=== PATIENT | male | born 1945 | race Caucasian/White ===

== ENCOUNTER 2017-01-31 15:44 | Observation (INO) | payer MEDICARE, OTHER ==
[~2017-01-31] VITALS: Ht 180.3 cm; Wt 90.4 kg
[~2017-01-31 15:44] MED LIST: COUMADIN 6MG6 MG/TAB PO; CYCLOBENZAPRINE5 MG PO; DIAZEPAM10 MG PO; MELATONIN1 MG PO; NO HOME MEDICATIONS; PREDNISONE1 MG
[2017-01-31 16:25] LABS: BASO # 0.1 (0.0-0.2); BASO % 0.5 % (0.0-2.0); EOS % 0.1 % (0-4.0); GRAN # 10.8 (1.4-6.5); GRAN % 85.3 % (42.2-75.2); HEMATOCRIT 44.7 % (42.0-52.0); LYMPH # 1.2 (1.2-3.4); LYMPH % 9.2 % (20.0-51.0); MEAN CELL VOLUME 98 fl (80.0-100.0); MEAN CORPUSCULAR HEMOGLOBIN 33 pg (27.0-31.0); MEAN CORPUSCULAR HGB CONC 34 g/dl (33.0-37.0); MEAN PLATELET VOLUME 9.4 fl (7.4-10.4); MONO # 0.6 (0.1-0.6); MONO % 4.5 % (1.7-9.3); PLATELET COUNT 261 K/mm3 (130-400); RED BLOOD COUNT 4.55 M/mm3 (4.20-5.60); REDCELL DISTRIBUTION WIDTH-CV 12.7 % (11.5-14.5); WHITE BLOOD COUNT 12.6 K/mm3 (4.8-10.8)
[2017-01-31 17:07] LABS: ADJUSTED CALCIUM 8.9 mg/dL (8.4-10.2); ALANINE AMINOTRANSFERASE 33 U/L (21-72); ALBUMIN 4.3 gm/dL (3.5-5.0); ALKALINE PHOSPHATASE 85 U/L (50-136); ANION GAP 12 mmol/L (7-16); BILIRUBIN,TOTAL 0.8 mg/dL (0.0-1.0); BLOOD UREA NITROGEN 17 mg/dL (9-20); CALCIUM 9.1 mg/dL (8.4-10.2); CARBON DIOXIDE 21 mmol/L (22-30); CHLORIDE 108 mmol/L (98-107); CREATININE, serum 1.09 mg/dL (0.66-1.25); GLUCOSE 108 mg/dL (74-106); LIPASE 56 U/L (23-300); POTASSIUM 4.3 mmol/L (3.4-5.0); SODIUM 140 mmol/L (137-145); TOTAL PROTEIN 7.6 gm/dL (6.4-8.2)
[2017-01-31 17:08] LABS: C-REACTIVE PROTEIN < 0.5 mg/dL (0.0-0.9)
[2017-01-31 18:38] LABS: PH 6 (5-8); SQUAMOUS EPITHELIAL 0-2 /hpf; URINE APPEARANCE Clear; URINE BACTERIA None Seen /hpf; URINE BILIRUBIN Negative (NEGATIVE); URINE BLOOD Negative (NEGATIVE); URINE COLOR Yellow; URINE GLUCOSE Negative (NEGATIVE); URINE KETONE 1+ (NEGATIVE); URINE RBC 0-2 /hpf; URINE UROBILINOGEN Negative (NEGATIVE); URINE WBC 0-2 /hpf
[2017-01-31 19:51] VITALS: BP 140/72; PULSE 72; TEMP 98.5
[2017-02-01 00:26] VITALS: BP 98/59; PULSE 68; TEMP 98.1
[2017-02-01 04:03] VITALS: BP 110/71; PULSE 64; TEMP 98.5
[2017-02-01 08:19] VITALS: BP 108/56; PULSE 72; TEMP 98.5
[2017-02-01] MEDS ORDERED: NORCO 325 MG-51 TAB PO (11:09)
== END 2017-02-01 11:25 | disposition home or self-care (01) ==
LOC: COL.ER 15:44 → MEDICAL 18:26
PROVIDERS: Emergency Medicine
DX: N20.0 Calculus of kidney (principal)
CPT/HCPCS: G0378; J1885; J2060; J2405; J2550; J3010; J7030; Q9967